=== PATIENT | female | born 1995 | race African-American/Black ===

== ENCOUNTER 2018-08-17 11:41 | Inpatient (IN) ==
[2018-08-17] MEDS ORDERED: ONDANSETRON 4 MG/2 ML VIAL IV PRN (11:51)
[2018-08-17] MEDS ORDERED: BUTORPHANOL 2 MG/ML VIAL IV PRN (11:51)
[2018-08-17] MEDS ORDERED: MEPERIDINE 50 MG/1 ML VIAL IV PRN (11:51)
[2018-08-17] MEDS ORDERED: LACTATED RINGERS 1,000 ML IV SCH ×2 (12:00→18:00)
[2018-08-17] MEDS ORDERED: OXYTOCIN/LR 20 UNIT/1,000 ML BAG IV SCH ×2 (12:00→14:00)
[2018-08-17] MEDS ORDERED: AMPICILLIN INJ 2,000 MG in SODIUM CHLORIDE 0.9% 100 ML IV SCH (12:00)
[2018-08-17 12:20] LABS: Basophils % 0.3 % (0.0-0.8); Eosinophils % 0.4 % (0.00-10.9); Hematocrit 29.2 VOL% (35.7-47.0); Immature Granulocytes % 0.8 %; Immature Granulocytes Absolute 0.09 #; Lymphocytes % 17.5 % (21.3-54.2); Mean Corpuscular HGB Conc 30.8 GM/DL (32-36); Mean Corpuscular Hemoglobin 28 PG (27-34); Mean Corpuscular Volume 91.3 FL (87-102); Mean Platelet Volume 10.2 FL (9.6-12.0); Monocytes # 0.7 10*3/uL (0.11-0.8); Neutrophils # 8.4 10*3/uL (1.4-7.4); Platelet Count 231 T/CUMM (130-400); Red Cell Distribution Width 14.4 % (9.3-17.3); White Blood Count 11.2 T/CUMM (4-12)
[2018-08-17] MEDS ORDERED: NALOXONE 0.4 MG/ML VIAL IV PRN (13:41)
[2018-08-17] MEDS ORDERED: CITRIC ACID/SODIUM CITRATE 30 ML UDCUP PO ONE (13:41)
[2018-08-17] MEDS ORDERED: diphenhydrAMINE 50 MG/1 ML VIAL IV PRN ×2 (13:41)
[2018-08-17] MEDS ORDERED: FAMOTIDINE 20 MG/2 ML VIAL IV ONE (13:41)
[2018-08-17] MEDS ORDERED: ePHEDrine 50 MG/ML AMP IV PRN (13:41)
[2018-08-17] MEDS ORDERED: fentaNYL 2 MCG/ROPIV 0.2% EPID 100 ML EPIDURAL SCH (14:00)
[2018-08-17] MEDS ORDERED: LACTATED RINGERS 1,000 ML IV ONE (14:00)
[2018-08-17 16:17] LABS: Apearance,Urine CLEAR (Clear); Bilirubin,Urine Negative (Negative); Blood, Urine Negative (Negative); Glucose,Urine (UA) Negative (Negative); Ketones,Urine Negative (Negative); Nitrite,Urine Negative (Negative); Protein,Urine Negative; RBC,Urine <1 /HPF (0-4); Squamous Epithelial Cell,Urine Occasional /HPF (0-10); Urine Color Straw (Yellow); Urine Specific Gravity 1.004 (1.001-1.035); Urine Urobilinogen < 2.0 EU/DL (0.2-1.0); WBC,Urine <1 /HPF (0-6)
[2018-08-17] MEDS ORDERED: MAGNESIUM HYDROXIDE SUSP 30 ML UDCUP PO PRN (17:37)
[2018-08-17] MEDS ORDERED: ACETAMINOPHEN 325 MG TABLET PO PRN (17:37)
[2018-08-17] MEDS ORDERED: BISACODYL 10 MG SUPP RECTAL PRN (17:37)
[2018-08-17] MEDS: DOCUSATE SODIUM 100 MG CAPSULE PO SCH (22:50)
[2018-08-17] MEDS: IBUPROFEN 800 MG TABLET PO PRN (23:30)
[2018-08-18 05:16] LABS: Basophils % 0.1 % (0.0-0.8); Eosinophils # 0.1 10*3/uL (0.0-0.87); Eosinophils % 0.4 % (0.00-10.9); Hematocrit 24.9 VOL% (35.7-47.0); Hemoglobin 7.5 GM/DL (12.0-16.0); Immature Granulocytes % 0.7 %; Immature Granulocytes Absolute 0.12 #; Lymphocytes # 2.2 10*3/uL (1.4-4.0); Lymphocytes % 13.4 % (21.3-54.2); Mean Corpuscular HGB Conc 30.1 GM/DL (32-36); Mean Corpuscular Hemoglobin 28 PG (27-34); Mean Corpuscular Volume 91.2 FL (87-102); Mean Platelet Volume 10.6 FL (9.6-12.0); Monocytes # 1.6 10*3/uL (0.11-0.8); Monocytes % 9.8 % (1.7-12.7); NRBC # 0.02 10*3/uL; Neutrophils # 12.6 10*3/uL (1.4-7.4); Neutrophils % 75.6 % (38.7-73.9); Platelet Count 185 T/CUMM (130-400); Red Blood Count 2.73 MC/CUMM (3.8-5.5); Red Cell Distribution Width 14.4 % (9.3-17.3); White Blood Count 16.7 T/CUMM (4-12)
[2018-08-18] MEDS: MULTIVITAMIN (PRENATAL) TABLET PO SCH (08:09)
[2018-08-18] MEDS: DOCUSATE SODIUM 100 MG CAPSULE PO SCH ×2 (08:09→22:02)
[2018-08-18] MEDS ORDERED: FERROUS SULFATE 325 MG TABLET PO SCH (09:00)
[2018-08-18] MEDS ORDERED: IRON (CARBONYL)/VIT C/B12/FA TABLET PO SCH (11:00)
[2018-08-18] MEDS: IBUPROFEN 800 MG TABLET PO PRN ×2 (11:02→22:05)
[2018-08-18] MEDS: IRON (CARBONYL)/VIT C/B12/FA TABLET PO SCH (22:02)
[2018-08-19] MEDS: MULTIVITAMIN (PRENATAL) TABLET PO SCH (08:57)
[2018-08-19] MEDS: DOCUSATE SODIUM 100 MG CAPSULE PO SCH (08:57)
[2018-08-19] MEDS: IRON (CARBONYL)/VIT C/B12/FA TABLET PO SCH (08:59)
[2018-08-19 11:14] VITALS: BP 117/69
== END 2018-08-19 13:09 | disposition home or self-care (01) | DRG 560 ==
LOC: N.LDOUT 11:41 → N.LD 11:42 → N.OB 21:03
PROVIDERS: ADMIT Obstetrics & Gynecology; ATTEND Obstetrics & Gynecology

== ENCOUNTER 2019-10-10 | Inpatient (IN) ==
[2019-10-10] MEDS ORDERED: MEPERIDINE 50 MG/1 ML VIAL IV PRN (00:08)
[2019-10-10] MEDS ORDERED: ONDANSETRON 4 MG/2 ML VIAL IV PRN ×2 (00:08→14:10)
[2019-10-10] MEDS ORDERED: BUTORPHANOL 2 MG/ML VIAL IV PRN (00:08)
[2019-10-10] MEDS ORDERED: LACTATED RINGERS 1,000 ML IV SCH (00:30)
[2019-10-10 00:57] LABS: Basophils % 0.2 % (0.0-0.8); Eosinophils # 0.1 10*3/uL (0.0-0.87); Eosinophils % 0.6 % (0.00-10.9); Hematocrit 28.1 VOL% (35.7-47.0); Hemoglobin 9.1 GM/DL (12.0-16.0); Immature Granulocytes % 0.7 %; Immature Granulocytes Absolute 0.06 #; Lymphocytes % 24.7 % (21.3-54.2); Mean Corpuscular HGB Conc 32.4 GM/DL (32-36); Mean Corpuscular Volume 92.7 FL (87-102); Mean Platelet Volume 10.8 FL (9.6-12.0); Monocytes % 8.9 % (1.7-12.7); NRBC # 0.02 10*3/uL; Neutrophils % 64.9 % (38.7-73.9); Platelet Count 191 T/CUMM (130-400); Red Blood Count 3.03 MC/CUMM (3.8-5.5); Red Cell Distribution Width 14.6 % (9.3-17.3); White Blood Count 8.1 T/CUMM (4-12)
[2019-10-10] MEDS ORDERED: DINOPROSTONE 10 MG VAG.INSERT VAG ONE (01:00)
[2019-10-10 01:19] LABS: Albumin 2.7 G/DL (3.4-5.0); Bilirubin,Total 0.4 MG/DL (0.2-1.0); Calcium 8.5 MG/DL (8.5-10.1); Osmolality,Calculated 270.8 MOS/KG (273-304); Total Protein 6.8 G/DL (6.4-8.3)
[2019-10-10] MEDS ORDERED: OXYTOCIN/LR 20 UNIT/1,000 ML BAG IV SCH (02:00)
[2019-10-10] MEDS ORDERED: ePHEDrine 50 MG/ML AMP IV PRN (08:41)
[2019-10-10] MEDS ORDERED: hydrOXYzine HCL 25 MG/1 ML VIAL IM PRN (08:41)
[2019-10-10] MEDS ORDERED: PROMETHAZINE 25 MG/1 ML VIAL IM ONE (08:41)
[2019-10-10] MEDS ORDERED: LACTATED RINGERS 1,000 ML IV ONE (08:41)
[2019-10-10] MEDS ORDERED: NALOXONE 0.4 MG/ML VIAL IV PRN (08:41)
[2019-10-10] MEDS ORDERED: diphenhydrAMINE 50 MG/1 ML VIAL IV PRN ×2 (08:41)
[2019-10-10] MEDS ORDERED: CITRIC ACID/SODIUM CITRATE 30 ML UDCUP PO ONE (08:41)
[2019-10-10] MEDS ORDERED: FAMOTIDINE 20 MG/2 ML VIAL IV ONE (08:41)
[2019-10-10] MEDS ORDERED: fentaNYL 2 MCG/ROPIV 0.2% EPID 100 ML EPIDURAL SCH (09:00)
[2019-10-10 12:10] LABS: Apearance,Urine CLEAR (Clear); Bacteria,Urine Occasional /HPF (Few); Bilirubin,Urine Negative (Negative); Blood, Urine Negative (Negative); Glucose,Urine (UA) Negative (Negative); Ketones,Urine Negative (Negative); Mucus,Urine Occasional /LPF (Occasional); Nitrite,Urine Negative (Negative); Protein,Urine Negative; Squamous Epithelial Cell,Urine Occasional /HPF (0-10); Urine Color Yellow (Yellow); Urine Specific Gravity 1.012 (1.001-1.035); Urine Urobilinogen < 2.0 EU/DL (0.2-1.0); WBC,Urine <1 /HPF (0-6)
[2019-10-10] MEDS ORDERED: METHYLERGONOVINE 0.2 MG/1 ML AMP ONE (12:56)
[2019-10-10] MEDS ORDERED: miSOPROStoL 200 MCG TABLET ONE (12:56)
[2019-10-10] MEDS ORDERED: ACETAMINOPHEN 325 MG TABLET PO PRN (14:10)
[2019-10-10] MEDS ORDERED: MAGNESIUM HYDROXIDE SUSP 30 ML UDCUP PO PRN (14:10)
[2019-10-10] MEDS ORDERED: BISACODYL 10 MG SUPP RECTAL PRN (14:10)
[2019-10-10] MEDS ORDERED: KETOROLAC 15 MG/1 ML VIAL IV PRN ×2 (14:18→15:00)
[2019-10-10] MEDS: DOCUSATE SODIUM 100 MG CAPSULE PO SCH (20:44)
[2019-10-10] MEDS: IBUPROFEN 800 MG TABLET PO PRN (23:46)
[2019-10-11 06:31] LABS: Basophils % 0.3 % (0.0-0.8); Eosinophils # 0.1 10*3/uL (0.0-0.87); Eosinophils % 0.9 % (0.00-10.9); Hematocrit 29.9 VOL% (35.7-47.0); Hemoglobin 9.4 GM/DL (12.0-16.0); Immature Granulocytes % 0.6 %; Immature Granulocytes Absolute 0.07 #; Lymphocytes # 2.4 10*3/uL (1.4-4.0); Lymphocytes % 19.5 % (21.3-54.2); Mean Corpuscular HGB Conc 31.4 GM/DL (32-36); Mean Corpuscular Volume 94.3 FL (87-102); Mean Platelet Volume 10.3 FL (9.6-12.0); Monocytes % 9.9 % (1.7-12.7); Neutrophils % 68.8 % (38.7-73.9); Platelet Count 163 T/CUMM (130-400); Red Blood Count 3.17 MC/CUMM (3.8-5.5); Red Cell Distribution Width 14.4 % (9.3-17.3); White Blood Count 12.1 T/CUMM (4-12)
[2019-10-11] MEDS: MULTIVITAMIN (PRENATAL) TABLET PO SCH (09:32)
[2019-10-11] MEDS: DOCUSATE SODIUM 100 MG CAPSULE PO SCH ×2 (09:32→21:48)
[2019-10-11] MEDS: IBUPROFEN 800 MG TABLET PO PRN ×2 (12:17→21:48)
[2019-10-12 07:40] VITALS: BP 132/85
[2019-10-12] MEDS: DOCUSATE SODIUM 100 MG CAPSULE PO SCH (09:23)
[2019-10-12] MEDS: MULTIVITAMIN (PRENATAL) TABLET PO SCH (09:23)
== END 2019-10-12 12:12 | disposition home or self-care (01) | DRG 560 ==
LOC: N.LDOUT → N.LD 00:01 → N.OB 15:55
PROVIDERS: ADMIT Obstetrics & Gynecology; ATTEND Obstetrics & Gynecology